=== PATIENT | female | born 1970 | race Caucasian/White ===

== ENCOUNTER → 2016-08-22 | Outpatient (CLI) | payer BC | LOC: MAMMO 13:18 | DX: Z09 Encounter for follow-up examination after completed treatment for conditions other than malignant neoplasm (principal); N63 Unspecified lump in breast ==

== ENCOUNTER → 2017-12-09 | Outpatient (CLI) | payer BC | LOC: MAMMO 09:15 | DX: Z12.31 Encounter for screening mammogram for malignant neoplasm of breast (principal); R92.0 Mammographic microcalcification found on diagnostic imaging of breast ==

== ENCOUNTER → 2017-12-18 | Outpatient (CLI) | payer BC | LOC: MAMMO 07:15 | DX: R92.0 Mammographic microcalcification found on diagnostic imaging of breast (principal) ==

== ENCOUNTER 2018-01-20 13:30 | Outpatient (RCR) | payer BC | END 2018-01-20 14:00 | disposition home or self-care (01) | LOC: PT 13:30 | DX: S22.32XS Fracture of one rib, left side, sequela (principal); S40.022D Contusion of left upper arm, subsequent encounter; R60.0 Localized edema; V49.50XD Passenger injured in collision with unspecified motor vehicles in traffic accident, subsequent encounter ==

== ENCOUNTER → 2019-01-20 | Outpatient (CLI) | payer BC | LOC: MAMMO 10:44 | DX: Z12.31 Encounter for screening mammogram for malignant neoplasm of breast (principal) ==

== ENCOUNTER → 2020-01-19 | Outpatient (CLI) | payer BC | LOC: MAMMO 09:56 | DX: Z12.31 Encounter for screening mammogram for malignant neoplasm of breast (principal) ==

== ENCOUNTER → 2021-01-25 | Outpatient (CLI) | payer BC | LOC: MAMMO 10:00 | DX: Z12.31 Encounter for screening mammogram for malignant neoplasm of breast (principal) ==

== ENCOUNTER → 2021-01-31 | Outpatient (CLI) | payer BC | LOC: LAB 11:44 | DX: R12 Heartburn (principal) ==

== ENCOUNTER → 2021-02-16 | Outpatient (CLI) | payer BC | LOC: CARDREHAB 09:57 → CARDLAB 10:11 | DX: I10 Essential (primary) hypertension (principal); R06.00 Dyspnea, unspecified; Z82.49 Family history of ischemic heart disease and other diseases of the circulatory system | CPT/HCPCS: A9500 ==

== ENCOUNTER → 2021-09-12 | Outpatient (CLI) | payer BC ==
[2021-09-12 17:45] LABS: CALCIUM 9.2 mg/dL (8.3-10.5)
[2021-09-12 17:46] LABS: TOTAL PROTEIN 7.1 g/dL (6.4-8.3)
[2021-09-12 17:48] LABS: TOTAL BILIRUBIN 0.2 mg/dL (0.2-1.2)
== END ==
LOC: LAB 17:22
PROVIDERS: Family Medicine
DX: F41.1 Generalized anxiety disorder (principal); I10 Essential (primary) hypertension; M25.50 Pain in unspecified joint

== ENCOUNTER → 2022-01-30 | Outpatient (CLI) | payer BC | LOC: MAMMO 15:48 | DX: Z12.31 Encounter for screening mammogram for malignant neoplasm of breast (principal) ==

== ENCOUNTER → 2022-06-24 | Outpatient (CLI) | payer BC | LOC: RAD 14:09 | DX: R29.898 Other symptoms and signs involving the musculoskeletal system (principal); M25.561 Pain in right knee ==

== ENCOUNTER → 2023-02-04 | Outpatient (CLI) | payer BC | LOC: MAMMO 15:47 | DX: Z12.31 Encounter for screening mammogram for malignant neoplasm of breast (principal) ==

== ENCOUNTER 2023-09-05 16:25 | Emergency (ER) | payer BC ==
[~2023-09-05] VITALS: Ht 157.5 cm; Wt 81.3 kg
[~2023-09-05 16:25] MED LIST: BENZONATATE100 M2; ESCITALOPRAM5 MG; LISINOPRIL2.5 MG
[2023-09-05] MEDS ORDERED: ESCITALOPRAM10 MG PO (16:34)
[2023-09-05] MEDS ORDERED: ZESTRIL5 M1 PO (16:34)
[2023-09-05 16:53] LABS: BASO # 0.03 K/mm3 (0.02-0.10); EOS # 0.16 K/mm3 (0.04-0.40); EOS % 1.4 % (1.0-5.0); HEMATOCRIT 42.4 % (37.0-47.0); HEMOGLOBIN 14.1 g/dL (12.5-16.0); LYMPH# 4.78 K/mm3 (1.50-4.00); MEAN CELL VOLUME 88 fl (78-100); MEAN CORPUSCULAR HEMOGLOBIN 29 pg (27-31); MEAN CORPUSCULAR HGB CONC 33 g/dL (33-37); MEAN PLATELET VOLUME 10.6 fl (7.4-10.4); MONO # 0.92 K/mm3 (0.20-0.80); NEU # 5.16 K/mm3 (1.40-6.50); PLATELET COUNT 246 K/mm3 (130-400); RED BLOOD COUNT 4.81 M/mm3 (4.10-5.30); WHITE BLOOD COUNT 11.1 K/mm3 (4.8-10.8)
[2023-09-05 17:06] LABS: SODIUM 140 mmol/L (136-145)
[2023-09-05 17:07] LABS: CALCIUM 9.4 mg/dL (8.3-10.5)
[2023-09-05 17:09] LABS: TOTAL PROTEIN 6.9 g/dL (6.4-8.3)
[2023-09-05 17:10] LABS: CARBON DIOXIDE 23 mmol/L (22-29); GLUCOSE 95 mg/dL (65-105)
[2023-09-05 17:11] LABS: TOTAL BILIRUBIN 0.2 mg/dL (0.2-1.2)
[2023-09-05 17:14] LABS: AST-SGOT 21 U/L (5-34)
[2023-09-05 17:17] LABS: ALT/SGPT 26 U/L (0-55); LIPASE 23 U/L (8-78)
[2023-09-05 17:25] LABS: TROPONIN-I < 0.030 ng/mL (0.00-0.033)
[2023-09-05 17:59] VITALS: BP 138/94
== END 2023-09-05 18:00 | disposition home or self-care (01) ==
LOC: ED 16:25
PROVIDERS: Nurse Practitioner Family
DX: R07.89 Other chest pain (principal); H92.02 Otalgia, left ear; J30.2 Other seasonal allergic rhinitis; F17.210 Nicotine dependence, cigarettes, uncomplicated

== ENCOUNTER → 2024-02-11 | Outpatient (CLI) | payer BC ==
[~2024-02-11] MED LIST changes: +ESCITALOPRAM10 MG PO; +KETOROLAC10 MG PO; +ZESTRIL5 M1 PO
== END ==
LOC: MAMMO 15:45
DX: Z12.31 Encounter for screening mammogram for malignant neoplasm of breast (principal)

== ENCOUNTER → 2024-03-12 | Outpatient (CLI) | payer BC | LOC: RAD 16:23 | DX: M79.644 Pain in right finger(s) (principal) ==

== ENCOUNTER → 2024-04-30 | Outpatient (CLI) | payer OTHER | LOC: RAD 15:35 | DX: M25.572 Pain in left ankle and joints of left foot (principal) ==

== ENCOUNTER → 2024-06-22 | Outpatient (CLI) | payer OTHER | LOC: RAD 13:50 | DX: S82.402K Unspecified fracture of shaft of left fibula, subsequent encounter for closed fracture with nonunion (principal) ==